=== PATIENT | female | born 1945 | race Caucasian/White ===

== ENCOUNTER → 2024-04-22 | Outpatient (REF) | payer MEDICARE ==
[~2024-04-22] MED LIST: IOPAMIDOL 370 MG/ML 100 ML INFUS..BTL INJ ONE
[2024-04-22 09:37] LABS: CREATININE, SERUM 1.1 mg/dL (0.57-1.11)
== END ==
LOC: DX 08:39 → EDSTATUS 09:00
PROVIDERS: ATTEND Family Medicine
DX: R59.0 Localized enlarged lymph nodes (principal); R13.10 Dysphagia, unspecified
CPT/HCPCS: 36415; 70491; 74220; 82565; 84520; Q9967

== ENCOUNTER → 2024-06-03 | Day surgery (SDC) | payer MEDICARE ==
[~2024-06-03] MED LIST changes: +AGRYLIN0.5 M1 PO; +B-121000 MC1; +BUSPIRONE HCL10 MG PO; +D3-5000125 MCG; +DEXMEDETOMIDINE HCL 200 MCG/2 ML VIAL ONE; +FENTANYL CITRATE/PF 100MCG/2 ML INJ ONE; +FISH OIL 1,0001 EAC7; +HYDRALAZINE HCL 20 MG/ML VIAL ONE; +INDERAL LA60 MG PO; -IOPAMIDOL 370 MG/ML 100 ML INFUS..BTL INJ ONE; +LASIX20 MG PO; +LEVOTHYROXINE75 MCG PO; +LIDOCAINE HCL 2% LOCAL INJ 5 ML SDV VIAL INJ ONE; +LOSARTAN POTASS25 MG PO; +LUTEIN20 M1 PO; +MECLIZINE HCL12.5 MG PO; +METOCLOPRAMIDE HCL 10 MG/2ML VIAL ONE; +PROPOFOL IV EMULSION 10 MG/ML 50 ML VIAL IV ONE; +TRAZODONE HCL50 MG PO; +VITAMIN E400 UNI1 PO
[2024-06-03] MEDS: LACTATED RINGER'S 1,000 ML ONE (09:59)
[2024-06-03 10:40] VITALS: BP 154/88; PULSE 74; RESP 16; O2SAT 99
== END | disposition home or self-care (01) ==
LOC: ENDO 07:40
PROVIDERS: ATTEND Internal Medicine Gastroenterology
DX: K22.10 Ulcer of esophagus without bleeding (principal); K29.50 Unspecified chronic gastritis without bleeding; K44.9 Diaphragmatic hernia without obstruction or gangrene; I11.0 Hypertensive heart disease with heart failure; I50.9 Heart failure, unspecified; E03.9 Hypothyroidism, unspecified; R42 Dizziness and giddiness; F32.A Depression, unspecified; Z79.899 Other long term (current) drug therapy
CPT/HCPCS: 43239; 43450; 88305; 88342; J0360; J0690; J2003; J2470; J2704; J2765; J3010; J7121

== ENCOUNTER 2024-06-08 09:02 | Emergency (ER) | payer MEDICARE ==
[~2024-06-08] VITALS: Ht 165.1 cm; Wt 51.7 kg
[~2024-06-08 09:02] MED LIST changes: -DEXMEDETOMIDINE HCL 200 MCG/2 ML VIAL ONE; -FENTANYL CITRATE/PF 100MCG/2 ML INJ ONE; -HYDRALAZINE HCL 20 MG/ML VIAL ONE; -LIDOCAINE HCL 2% LOCAL INJ 5 ML SDV VIAL INJ ONE; -METOCLOPRAMIDE HCL 10 MG/2ML VIAL ONE; -PROPOFOL IV EMULSION 10 MG/ML 50 ML VIAL IV ONE
[2024-06-08 09:26] VITALS: TEMP 98.1
[2024-06-08 11:09] VITALS: PULSE 62; RESP 18; O2SAT 98
== END 2024-06-08 11:11 | disposition home or self-care (01) ==
LOC: ER 09:10
DX: R04.0 Epistaxis (principal); I10 Essential (primary) hypertension; E03.9 Hypothyroidism, unspecified; Z86.79 Personal history of other diseases of the circulatory system
CPT/HCPCS: 99282